=== PATIENT | female | born 1945 | race African-American/Black ===

== ENCOUNTER 2017-10-30 11:43 | Emergency (ER) | payer OTHER ==
[~2017-10-30] VITALS: Ht 162.6 cm; Wt 67.0 kg
[~2017-10-30 11:43] MED LIST: ASPI-1159 PO; BUDE6.9H INH; CHOL100046 PO; DIAZ5TAB4 PO; ESOM40CA PO; HYDR-2510 PO; METO-539 PO; NITR0.4T SL; PREMV; probiotic PO
[2017-10-30 15:03] VITALS: BP 169/70
== END 2017-10-30 15:05 | disposition home or self-care (01) ==
LOC: ER 12:54
DX: M77.8 Other enthesopathies, not elsewhere classified (principal); I10 Essential (primary) hypertension; Z85.3 Personal history of malignant neoplasm of breast; E78.00 Pure hypercholesterolemia, unspecified; I11.9 Hypertensive heart disease without heart failure; Z87.891 Personal history of nicotine dependence; Z79.82 Long term (current) use of aspirin; Z88.8 Allergy status to other drugs, medicaments and biological substances; Z98.890 Other specified postprocedural states
CPT/HCPCS: 99283

== ENCOUNTER 2017-12-26 06:45 | Inpatient (IN) | payer OTHER ==
[~2017-12-26] VITALS: Ht 162.6 cm; Wt 72.6 kg
[2017-12-26] MEDS ORDERED: IODIXANOL 320MG/ML 100 ML BOTTLE IV ONE ×2 (07:27→09:53)
[2017-12-26] MEDS ORDERED: LIDOCAINE HCL 1% 20ML VIAL (Pyxis) INJ ONE (07:28)
[2017-12-26] MEDS ORDERED: TRIA1TAB92 PO (08:08)
[2017-12-26] MEDS ORDERED: HYDR-4133 PO (08:08)
[2017-12-26] MEDS ORDERED: FENTANYL CITRATE/PF 50MCG/ML 2ML VIAL ONE (08:48)
[2017-12-26] MEDS ORDERED: MIDAZOLAM HCL 2 MG/2 ML VIAL ONE ×2 (08:48→09:52)
[2017-12-26] MEDS ORDERED: IOHEXOL-300 100 ML BOTTLE ONE (09:25)
[2017-12-26] MEDS ORDERED: ONDANSETRON HCL 4MG/2ML VIAL ONE ×2 (09:54→14:07)
[2017-12-26] MEDS ORDERED: HYDRALAZINE 20MG/ML VIAL ONE (09:58)
[2017-12-26] MEDS ORDERED: ASPIRIN 325MG TABLET ONE (10:06)
[2017-12-26] MEDS ORDERED: CLOPIDOGREL 75MG TABLET ONE (10:07)
[2017-12-26] MEDS: ACETAMINOPHEN 325MG TABLET PO PRN ×2 (11:58→23:21)
[2017-12-26] MEDS ORDERED: NICARDIPINE 100MCG/ML 10ML VIAL (CATH LAB) IV ONE (14:48)
[2017-12-26] MEDS ORDERED: NITROGLYCERIN 50MCG/ML 10ML VIAL (CATH LAB) IV ONE (14:48)
[2017-12-26] MEDS ORDERED: HEPARIN SODIUM 1,000 UNIT/1ML VIAL IV ONE (14:50)
[2017-12-26 15:45] VITALS: BP 138/92
[2017-12-26 15:50] VITALS: BP 138/92
[2017-12-26 16:00] VITALS: BP 145/71
[2017-12-26] MEDS ORDERED: ONDANSETRON HCL 4MG/2ML VIAL IV NR (16:54)
[2017-12-26] MEDS ORDERED: ONDANSETRON HCL 4MG/2ML VIAL IV PRN (16:55)
[2017-12-26] MEDS ORDERED: ATROPINE SULFATE 1MG/10ML SYR IV PRN (17:00)
[2017-12-26] MEDS ORDERED: NITROGLYCERIN 0.4MG TABLET SL SL PRN (17:30)
[2017-12-26] MEDS ORDERED: MEDICATION NOT ON FORMULARY EA (Budesonide/Formoterol Fumarate (Symbicort 80/4.5 Mcg Inh INH SCH (17:30)
[2017-12-26] MEDS: HYDRALAZINE HCL 50MG TABLET PO SCH (17:39)
[2017-12-26] MEDS ORDERED: BUDESONIDE 0.5MG/2ML NEB HHN SCH (18:00)
[2017-12-26] MEDS ORDERED: ALBUTEROL (0.083%) 2.5MG/3ML NEB HHN SCH (18:00)
[2017-12-26 18:01] VITALS: BP 140/68
[2017-12-26 20:00] VITALS: BP 146/87
[2017-12-26] MEDS ORDERED: DIAZEPAM 5 MG TABLET PO PRN (21:00)
[2017-12-26] MEDS: METOPROLOL TARTRATE 25MG TABLET PO SCH (21:28)
[2017-12-26 22:00] VITALS: BP 159/73
[2017-12-27] VITALS (9 sets, daily range): BP systolic 105–149; BP diastolic 48–79
[2017-12-27] MEDS ORDERED: PANTOPRAZOLE 40MG DR TABLET PO SCH (06:50)
[2017-12-27 07:15] LABS: CHLORIDE 95 mEq/L (98-107)
[2017-12-27 07:27] LABS: BASOPHILS % 0.9 % (0.0-2.0); EOSINOPHILS % 1.5 % (0.0-5.0); HEMATOCRIT. 33.1 % (36.0-48.0); HEMOGLOBIN. 11.5 g/dL (12.0-16.0); LYMPHOCYTES % 23.5 % (20.0-50.0); MEAN CORPUSCULAR HEMOGLOBIN 28.9 pg (28.0-32.0); MEAN CORPUSCULAR VOLUME 83.1 fL (81.0-99.0); MEAN PLATELET VOLUME 8.3 fl (7.4-10.4); MONOCYTES % 11.3 % (2.0-8.0); NEUTROPHILS % 62.8 % (40.0-76.0); PLATELET 269 x1000/uL (130-400); RED BLOOD CELL COUNT 3.98 mill/uL (4.2-5.4); RED CELL DISTRIBUTION WIDTH 14.4 % (11.6-14.6)
[2017-12-27] MEDS: METOPROLOL TARTRATE 25MG TABLET PO SCH (08:19)
[2017-12-27] MEDS: HYDRALAZINE HCL 50MG TABLET PO SCH (08:20)
[2017-12-27] MEDS ORDERED: ASPIRIN 81MG EC TABLET PO SCH (09:00)
[2017-12-27] MEDS ORDERED: CLOPIDOGREL 75MG TABLET PO SCH (09:00)
[2017-12-27] MEDS ORDERED: MEDICATION NOT ON FORMULARY EA (Esomeprazole Mag Trihydrate (Nexium) 1 CAP) PO SCH (09:00)
[2017-12-27] MEDS ORDERED: TRIAMTERENE/HYDROCHLOROTHIAZID 75/50MG TABLET PO SCH (09:00)
[2017-12-27] MEDS ORDERED: HYDROCHLOROTHIAZIDE 50MG TABLET PO SCH (09:00)
[2017-12-27] MEDS ORDERED: CHOLECALCIFEROL 5000 UNIT PO SCH (09:00)
[2017-12-27] MEDS ORDERED: PROBIOTIC PO SCH (09:00)
[2017-12-27] MEDS ORDERED: CHOLECALCIFEROL (D3) 1000 UNIT TABLET PO SCH (09:00)
[2017-12-27] MEDS ORDERED: LACTOBACILLUS GG CAPSULE PO SCH (09:00)
[2017-12-27] MEDS ORDERED: ASPIRIN 325MG TABLET PO SCH (09:00)
== END 2017-12-27 14:30 | disposition home or self-care (01) | DRG 247 ==
LOC: CCL 06:45 → 3WST 06:46
PROVIDERS: ADMIT Internal Medicine; ATTEND Specialist
PROC: 027034Z Dilation of Coronary Artery, One Artery with Drug-eluting Intraluminal Device, Percutaneous Approach (ICD-10-PCS; 2017-12-26)
PROC: B2111ZZ Fluoroscopy of Multiple Coronary Arteries using Low Osmolar Contrast (ICD-10-PCS; 2017-12-26)
PROC: B2151ZZ Fluoroscopy of Left Heart using Low Osmolar Contrast (ICD-10-PCS; 2017-12-26)
PROC: 4A023N7 Measurement of Cardiac Sampling and Pressure, Left Heart, Percutaneous Approach (ICD-10-PCS; principal; 2017-12-26 10:00)
DX: T82.855A Stenosis of coronary artery stent, initial encounter (principal); I25.110 Atherosclerotic heart disease of native coronary artery with unstable angina pectoris; I11.9 Hypertensive heart disease without heart failure; Y83.8 Other surgical procedures as the cause of abnormal reaction of the patient, or of later complication, without mention of misadventure at the time of the procedure; I73.9 Peripheral vascular disease, unspecified; Y92.89 Other specified places as the place of occurrence of the external cause
CPT/HCPCS: 36415; 80048; 83735; 84443; 85025; 85347; 92928; 93005; 93458; C1725; C1769; C1887; C1893; J0360; J1644; J2250; J2405; J3010; J3490; J7040; Q9967

== ENCOUNTER 2018-09-03 06:10 | Inpatient (IN) | payer OTHER ==
[~2018-09-03] VITALS: Ht 162.6 cm; Wt 65.0 kg
[2018-09-03] VITALS (22 sets, daily range): BP systolic 132–173; BP diastolic 34–67
[~2018-09-03 06:10] MED LIST changes: +HYDR-4133 PO; +TRIA1TAB92 PO
[2018-09-03] MEDS ORDERED: GELATIN SPONGE,ABSORBABLE 12-7MM SPONGE ONE (07:00)
[2018-09-03] MEDS ORDERED: LACTATED RINGERS 1,000 ML IV SCH (07:00)
[2018-09-03] MEDS ORDERED: HEPARIN SODIUM 1,000 UNIT/1ML VIAL IV ONE (07:01)
[2018-09-03] MEDS ORDERED: LIDOCAINE HCL 1% 20ML VIAL (Pyxis) INJ ONE (07:01)
[2018-09-03] MEDS ORDERED: BACITRACIN 15GM TUBE TOP ONE (07:01)
[2018-09-03] MEDS ORDERED: THROMBIN (BOVINE) 5000 UNITS/VIAL TOP ONE (07:01)
[2018-09-03] MEDS ORDERED: NORMAL SALINE 0.9% 10 ML SYR ONE (07:02)
[2018-09-03] MEDS ORDERED: BACITRACIN 50,000 UNITS/VIAL ONE (07:02)
[2018-09-03] MEDS ORDERED: BUPIVACAINE HCL/PF 0.5% (5MG/ML) 10ML ONE (07:02)
[2018-09-03] MEDS ORDERED: MIDAZOLAM HCL 2 MG/2 ML VIAL ONE (07:44)
[2018-09-03] MEDS ORDERED: PROPOFOL 200MG/20ML VIAL IV ONE (07:44)
[2018-09-03] MEDS ORDERED: PHENYLEPHRINE HCL 10 MG/ML 1ML (IV VIAL) IV ONE (08:15)
[2018-09-03] MEDS ORDERED: PHENYLEPHRINE 10 MG in DEXT 5% WATER 249 ML IV ONE ×2 (08:17→08:30)
[2018-09-03] MEDS ORDERED: NICARDIPINE 50 MG in SODIUM CHLORIDE 0.9% 230 ML IV ONE (08:18)
[2018-09-03] MEDS ORDERED: MORPHINE SULFATE 4 MG/ML CPJ (NOT FOR IM USE) IV PRN (08:30)
[2018-09-03] MEDS ORDERED: ROCURONIUM BROMIDE 10MG/ML VIAL 5ML IV ONE (08:33)
[2018-09-03] MEDS ORDERED: AMLO10TA80 PO (09:10)
[2018-09-03] MEDS ORDERED: TURM1CAP PO (09:10)
[2018-09-03] MEDS ORDERED: CLOP75TA16 PO (09:10)
[2018-09-03] MEDS ORDERED: GLYCOPYRROLATE 0.2 MG/ML 2ML VIAL ONE (09:42)
[2018-09-03] MEDS ORDERED: AMLODIPINE 5MG TABLET PO NR (12:45)
[2018-09-03] MEDS ORDERED: ATROPINE SULFATE 1MG/ML VIAL IV PRN (13:00)
[2018-09-03] MEDS ORDERED: METO-385 PO (15:54)
[2018-09-03] MEDS ORDERED: EVOL140P SQ (15:54)
[2018-09-03] MEDS ORDERED: TRIA1TAB92 MT (15:54)
[2018-09-03] MEDS ORDERED: DIPHENHYDRAMINE 50MG/ML VIAL IV PRN (18:15)
[2018-09-03] MEDS ORDERED: ACETAMINOPHEN 325MG TABLET PO PRN (18:15)
[2018-09-03] MEDS ORDERED: IPRATROPIUM/ALBUTEROL 0.5-3(2.5)MG/3ML NEB HHN PRN (18:15)
[2018-09-03] MEDS ORDERED: DOCUSATE SODIUM 100MG CAPSULE PO PRN (18:15)
[2018-09-03] MEDS ORDERED: ACETAMINOPHEN 650MG SUPP PR PRN (18:15)
[2018-09-03] MEDS: NICARDIPINE 50 MG in SODIUM CHLORIDE 0.9% 230 ML IV PRN ×2 (18:57→23:40)
[2018-09-03 22:04] LABS: HEMATOCRIT 33.1 % (36.0-48.0); MEAN CORPUSCULAR HEMOGLOBIN 28.2 pg (28.0-32.0); MEAN CORPUSCULAR VOLUME 84.7 fL (81.0-99.0); PLATELET 256 x1000/uL (130-400); RED BLOOD CELL COUNT 3.91 mill/uL (4.2-5.4); RED CELL DISTRIBUTION WIDTH 14.7 % (11.6-14.6)
[2018-09-03 22:09] LABS: PROTHROMBIN TIME 10.1 sec (9.1-11.1)
[2018-09-03 22:16] LABS: CHLORIDE 100 mEq/L (98-107)
[2018-09-03 22:23] LABS: LDL CHOLESTEROL 144 mg/dL (5-100)
[2018-09-03 22:24] LABS: HDL CHOLESTEROL 53 mg/dL (40-59)
[2018-09-04] VITALS (56 sets, daily range): BP systolic 55–164; BP diastolic -25–76
[2018-09-04] MEDS: ATORVASTATIN CALCIUM 20MG TABLET PO SCH ×2 (00:29→00:49)
[2018-09-04] MEDS: NICARDIPINE 50 MG in SODIUM CHLORIDE 0.9% 230 ML IV PRN (03:47)
[2018-09-04 06:02] LABS: BASOPHILS % 0.8 % (0.0-2.0); EOSINOPHILS % 0.5 % (0.0-5.0); HEMATOCRIT. 32.1 % (36.0-48.0); HEMOGLOBIN. 10.8 g/dL (12.0-16.0); LYMPHOCYTES % 27.6 % (20.0-50.0); MEAN CORPUSCULAR HEMOGLOBIN 28.5 pg (28.0-32.0); MEAN CORPUSCULAR VOLUME 84.9 fL (81.0-99.0); MEAN PLATELET VOLUME 7.8 fl (7.4-10.4); MONOCYTES % 12.5 % (2.0-8.0); NEUTROPHILS % 58.6 % (40.0-76.0); PLATELET 247 x1000/uL (130-400); RED BLOOD CELL COUNT 3.78 mill/uL (4.2-5.4); RED CELL DISTRIBUTION WIDTH 14.8 % (11.6-14.6)
[2018-09-04 06:36] LABS: CLARITY URINE CLEAR (CLEAR); COLOR URINE YELLOW (YELLOW); KETONES URINE 1+ (NEGATIVE); LEUKOCYTE ESTERASE URINE NEGATIVE (NEGATIVE); NITRITE URINE NEGATIVE (NEGATIVE); OCCULT BLOOD URINE NEGATIVE (NEGATIVE); PROTEIN URINE NEGATIVE (NEGATIVE); SPECIFIC GRAVITY URINE 1.011 (1.005-1.030); UROBILINOGEN URINE 0.2 E.U./dL (0.2-1.0)
[2018-09-04 06:42] LABS: CHLORIDE 99 mEq/L (98-107)
[2018-09-04 06:45] LABS: PHOSPHORUS 3.3 mg/dL (2.5-4.9)
[2018-09-04] MEDS: HYDROCODONE/ACETAMINOPHEN 5/325MG TABLET PO PRN ×2 (09:38→11:10)
[2018-09-04] MEDS: AMLODIPINE 5MG TABLET PO SCH (09:38)
[2018-09-04] MEDS: SODIUM CHLORIDE 0.9% 1,000 ML IV SCH (10:15)
[2018-09-04] MEDS: LISINOPRIL 5MG TABLET PO SCH ×2 (11:18→21:18)
[2018-09-04] MEDS: MAGNESIUM OXIDE 400MG TABLET PO SCH (11:19)
[2018-09-04] MEDS ORDERED: MAGNESIUM 1 G PREMIX 100 ML IV NR (12:00)
[2018-09-04] MEDS: ASPIRIN 81MG TABLET PO SCH (15:55)
[2018-09-04] MEDS: HYDRALAZINE 20MG/ML VIAL IV PRN (18:13)
[2018-09-04] MEDS ORDERED: ATORVASTATIN CALCIUM 20MG TABLET PO SCH (21:00)
[2018-09-05] VITALS (28 sets, daily range): BP systolic 133–166; BP diastolic 48–92
[2018-09-05] MEDS: HYDRALAZINE 20MG/ML VIAL IV PRN (00:45)
[2018-09-05 07:02] LABS: BASOPHILS % 0.7 % (0.0-2.0); EOSINOPHILS % 4.9 % (0.0-5.0); HEMATOCRIT. 32.8 % (36.0-48.0); HEMOGLOBIN. 10.9 g/dL (12.0-16.0); LYMPHOCYTES % 27.4 % (20.0-50.0); MEAN CORPUSCULAR HEMOGLOBIN 28.3 pg (28.0-32.0); MEAN CORPUSCULAR VOLUME 85.5 fL (81.0-99.0); MEAN PLATELET VOLUME 8.1 fl (7.4-10.4); MONOCYTES % 14.2 % (2.0-8.0); NEUTROPHILS % 52.8 % (40.0-76.0); PLATELET 241 x1000/uL (130-400); RED BLOOD CELL COUNT 3.83 mill/uL (4.2-5.4); RED CELL DISTRIBUTION WIDTH 15.5 % (11.6-14.6)
[2018-09-05 07:14] LABS: CHLORIDE 104 mEq/L (98-107)
[2018-09-05] MEDS: AMLODIPINE 5MG TABLET PO SCH (09:43)
[2018-09-05] MEDS: ASPIRIN 81MG TABLET PO SCH (09:43)
[2018-09-05] MEDS: MAGNESIUM OXIDE 400MG TABLET PO SCH (09:43)
[2018-09-05] MEDS: LISINOPRIL 5MG TABLET PO SCH ×2 (09:44→21:46)
[2018-09-05] MEDS: SODIUM CHLORIDE 0.9% 1,000 ML IV SCH (09:45)
[2018-09-05] MEDS ORDERED: HYDRALAZINE HCL 50MG TABLET PO ONE (11:15)
[2018-09-05] MEDS ORDERED: HYDRALAZINE HCL 50MG TABLET PO SCH (11:21)
[2018-09-05] MEDS ORDERED: DOCUSATE SODIUM SUGAR FREE 100MG/10ML UDC NG SCH (11:30)
[2018-09-05] MEDS: CHOLESTYRAMINE/SUCROSE 4G POWDER PACKET PO SCH (17:03)
[2018-09-05] MEDS: CLOPIDOGREL 75MG TABLET PO SCH (17:03)
[2018-09-05] MEDS: HYDRALAZINE HCL 50MG TABLET PO SCH (21:47)
[2018-09-06] VITALS: BP 135/87
[2018-09-06 04:00] VITALS: BP 150/71
[2018-09-06 08:10] VITALS: BP 103/64
[2018-09-06] MEDS: CHOLESTYRAMINE/SUCROSE 4G POWDER PACKET PO SCH (08:54)
[2018-09-06] MEDS: MAGNESIUM OXIDE 400MG TABLET PO SCH (08:54)
[2018-09-06] MEDS: ASPIRIN 81MG TABLET PO SCH (08:54)
[2018-09-06] MEDS: CLOPIDOGREL 75MG TABLET PO SCH (08:54)
[2018-09-06] MEDS: HYDRALAZINE HCL 50MG TABLET PO SCH (08:59)
[2018-09-06] MEDS: AMLODIPINE 5MG TABLET PO SCH (08:59)
[2018-09-06] MEDS: LISINOPRIL 5MG TABLET PO SCH (09:00)
[2018-09-06 12:00] VITALS: BP 134/66
[2018-09-06 16:00] VITALS: BP 112/72
[2018-09-06 17:29] VITALS: BP 112/72
== END 2018-09-06 19:15 | disposition home or self-care (01) | DRG 26 ==
LOC: OR 06:10 → CVICU 06:11 → 6WST 09-05 14:21
PROVIDERS: ADMIT Surgery Vascular Surgery; ATTEND Surgery Vascular Surgery
PROC: 03CH3ZZ Extirpation of Matter from Right Common Carotid Artery, Percutaneous Approach (ICD-10-PCS; principal; 2018-09-03)
PROC: 03CM3ZZ Extirpation of Matter from Right External Carotid Artery, Percutaneous Approach (ICD-10-PCS; 2018-09-03)
DX: I65.21 Occlusion and stenosis of right carotid artery (principal); J44.1 Chronic obstructive pulmonary disease with (acute) exacerbation; E87.1 Hypo-osmolality and hyponatremia; D68.59 Other primary thrombophilia; I11.9 Hypertensive heart disease without heart failure; K21.9 Gastro-esophageal reflux disease without esophagitis; I73.9 Peripheral vascular disease, unspecified; E83.42 Hypomagnesemia; I25.10 Atherosclerotic heart disease of native coronary artery without angina pectoris; E78.5 Hyperlipidemia, unspecified; Z87.81 Personal history of (healed) traumatic fracture; Z79.899 Other long term (current) drug therapy; Z85.3 Personal history of malignant neoplasm of breast; Z88.8 Allergy status to other drugs, medicaments and biological substances; Z90.12 Acquired absence of left breast and nipple; Z95.5 Presence of coronary angioplasty implant and graft
CPT/HCPCS: 36415; 76881; 80048; 80061; 83036; 83735; 84100; 84443; 85027; 88304; 88311; 93005; 93306; 97162; 97530; A6261; J0360; J1644; J2250; J2370; J2704; J3475; J3490; J7030; J7050; J7060; A4315

== ENCOUNTER 2018-09-07 01:50 | Emergency (ER) | payer OTHER ==
[~2018-09-07] VITALS: Ht 167.6 cm; Wt 70.0 kg
[~2018-09-07 01:50] MED LIST changes: +AMLO10TA80 PO; +EVOL140P SQ; -HYDR-2510 PO; +METO-385 PO; -METO-539 PO; -PREMV; +TRIA1TAB92 MT; -TRIA1TAB92 PO; +TURM1CAP PO
[2018-09-07 06:13] VITALS: BP 149/68
== END 2018-09-07 06:16 | disposition home or self-care (01) ==
LOC: ER 01:50
DX: I97.618 Postprocedural hemorrhage of a circulatory system organ or structure following other circulatory system procedure (principal); I10 Essential (primary) hypertension; E66.9 Obesity, unspecified; Z88.8 Allergy status to other drugs, medicaments and biological substances; Z91.041 Radiographic dye allergy status; Z79.82 Long term (current) use of aspirin; Z85.9 Personal history of malignant neoplasm, unspecified; Z68.24 Body mass index [BMI] 24.0-24.9, adult; Y83.8 Other surgical procedures as the cause of abnormal reaction of the patient, or of later complication, without mention of misadventure at the time of the procedure; Y92.018 Other place in single-family (private) house as the place of occurrence of the external cause
CPT/HCPCS: 99282; 99283

== ENCOUNTER → 2020-04-06 | Outpatient (CLI) | payer OTHER ==
[~2020-04-06] MED LIST changes: -ASPI-1159 PO; +ASPI-1497 PO; +BARIUM SULFATE 176 GM SUSP.RECON ONE; -EVOL140P SQ; +EVOL140P3 SQ; +EZ-HD SUSPENSION(BARIUM SULFATE 340GM) PO ONE
== END | disposition home or self-care (01) ==
LOC: RAD 08:51
PROVIDERS: ATTEND Internal Medicine Gastroenterology
DX: K22.4 Dyskinesia of esophagus (principal); K21.9 Gastro-esophageal reflux disease without esophagitis; R13.10 Dysphagia, unspecified; I70.0 Atherosclerosis of aorta
CPT/HCPCS: 74220

== ENCOUNTER 2022-08-10 13:29 | Inpatient (IN) | payer MEDICARE, MEDICAID ==
[~2022-08-10] VITALS: Ht 154.9 cm; Wt 54.2 kg
[~2022-08-10 13:29] MED LIST changes: -BARIUM SULFATE 176 GM SUSP.RECON ONE; -EZ-HD SUSPENSION(BARIUM SULFATE 340GM) PO ONE
[2022-08-10] MEDS ORDERED: NITROGLYCERIN 0.4MG TABLET SL SL PRN (16:30)
[2022-08-10] MEDS ORDERED: ASPIRIN 81MG TABLET PO ONE (16:30)
[2022-08-10 18:03] LABS: BASOPHILS % 1.3 % (0.0-2.0); EOSINOPHILS % 3.8 % (0.0-5.0); HEMATOCRIT. 39.3 % (36.0-48.0); LYMPHOCYTES % 36.9 % (20.0-50.0); MEAN CORPUSCULAR HEMOGLOBIN 28.9 pg (28.0-32.0); MEAN CORPUSCULAR VOLUME 87.1 fL (81.0-99.0); MEAN PLATELET VOLUME 8.2 fl (7.4-10.4); MONOCYTES % 12.3 % (2.0-8.0); NEUTROPHILS % 45.7 % (40.0-76.0); PLATELET 194 x1000/uL (130-400); RED BLOOD CELL COUNT 4.51 mill/uL (4.2-5.4); RED CELL DISTRIBUTION WIDTH 16.4 % (11.6-14.6)
[2022-08-10 18:13] LABS: CHLORIDE 95 mEq/L (98-107)
[2022-08-10] MEDS ORDERED: ASPIRIN 81MG TABLET PO NR (18:30)
[2022-08-10 23:51] LABS: CLARITY URINE CLEAR (CLEAR); COLOR URINE YELLOW (YELLOW); KETONES URINE TRACE (NEGATIVE); LEUKOCYTE ESTERASE URINE NEGATIVE (NEGATIVE); NITRITE URINE NEGATIVE (NEGATIVE); OCCULT BLOOD URINE NEGATIVE (NEGATIVE); PROTEIN URINE NEGATIVE (NEGATIVE); SPECIFIC GRAVITY URINE 1.014 (1.005-1.030); UROBILINOGEN URINE 0.2 E.U./dL (0.2-1.0)
[2022-08-11] VITALS (8 sets, daily range): BP systolic 135–159; BP diastolic 54–81
[2022-08-11] MEDS ORDERED: NITROGLYCERIN 0.4MG TABLET SL SL PRN (01:00)
[2022-08-11] MEDS ORDERED: GUAIFENESIN 200MG/10ML SUGAR FREE UDC PO PRN (01:00)
[2022-08-11] MEDS ORDERED: CEFTRIAXONE 1 G PREMIX 50 ML IV SCH (01:00)
[2022-08-11] MEDS ORDERED: DOCUSATE SODIUM 100MG CAPSULE PO PRN (01:00)
[2022-08-11] MEDS ORDERED: ACETAMINOPHEN 325MG TABLET PO PRN ×2 (01:00)
[2022-08-11] MEDS ORDERED: IPRATROPIUM/ALBUTEROL 0.5-3(2.5)MG/3ML NEB NEB PRN (01:00)
[2022-08-11] MEDS ORDERED: CLONIDINE 0.1MG TABLET PO PRN (01:00)
[2022-08-11] MEDS ORDERED: MAGNESIUM/ALUMINUM HYDROXIDE/SIMETHICONE 30ML UDC PO PRN (01:00)
[2022-08-11] MEDS: FUROSEMIDE 40MG/4ML VIAL IVP SCH ×3 (01:15→17:28)
[2022-08-11] MEDS ORDERED: AZITHROMYCIN 500 MG in DEXT 5% WATER 250 ML IV SCH (02:00)
[2022-08-11] MEDS: METHYLPREDNISOLONE SOD SUCC 40 MG/ML VIAL IV SCH ×2 (02:00→09:31)
[2022-08-11] MEDS: ONDANSETRON HCL 4MG/2ML INJ IV PRN (04:34)
[2022-08-11 07:47] LABS: BG BASE EXCESS 2.1 mmol/L (-2.0-2.0); BG CARBOXYHEMOGLOBIN 0.9 % (0.5-1.5); BG DEOXYHEMOGLOBIN 5.1 % (0.0-5.0); BG HCO3 ACT 26.3 mmol/L (22.0-26.0); BG METHEMOGLOBIN 0.6 % (0.0-1.5); BG OXYGEN SATURATION 94.8 % (92.0-98.5); BG OXYHEMOGLOBIN 93.4 % (94.0-97.0); BG PCO2 39.8 mmHg (35.0-45.0); BG PH 7.438 (7.350-7.450); BG PO2 77.3 mmHg (75.0-100.0); BG SAMPLE SITE RIGHT BRACHIAL; BG TOTAL HEMOGLOBIN 13.6 g/dL (12.0-18.0); BG VENT MODE ROOM AIR
[2022-08-11] MEDS: HYDRALAZINE HCL 50MG TABLET PO SCH ×3 (09:00→17:00)
[2022-08-11] MEDS ORDERED: ALBUTEROL (0.083%) 2.5MG/3ML NEB HHN PRN (09:00)
[2022-08-11] MEDS ORDERED: IPRATROPIUM BROMIDE (0.02%) 0.5MG/2.5ML NEB HHN PRN (09:00)
[2022-08-11] MEDS ORDERED: DIAZEPAM 5 MG TABLET PO PRN (09:00)
[2022-08-11] MEDS: ASPIRIN 81MG EC TABLET PO SCH (09:19)
[2022-08-11] MEDS: METOPROLOL SUCCINATE 50MG ER TABLET PO SCH (09:20)
[2022-08-11] MEDS: TRIAMTERENE/HCTZ 37.5/25MG TABLET PO SCH (09:20)
[2022-08-11] MEDS: AMLODIPINE 10MG TABLET PO SCH (09:21)
[2022-08-11] MEDS: ENOXAPARIN 40MG/0.4ML SYR SUBCUT SCH (09:22)
[2022-08-11] MEDS ORDERED: ZOLPIDEM TARTRATE 5MG TABLET PO PRN (14:15)
[2022-08-11] MEDS: NITROGLYCERIN OINT 1GM/INCH UDPKT TD SCH ×2 (15:08→21:24)
[2022-08-11 15:58] LABS: BASOPHILS % 0.4 % (0.0-2.0); HEMATOCRIT. 44.7 % (36.0-48.0); HEMOGLOBIN. 14.8 g/dL (12.0-16.0); LYMPHOCYTES % 22.2 % (20.0-50.0); MEAN CORPUSCULAR HEMOGLOBIN 29.1 pg (28.0-32.0); MEAN CORPUSCULAR VOLUME 87.8 fL (81.0-99.0); MEAN PLATELET VOLUME 8.7 fl (7.4-10.4); MONOCYTES % 1.4 % (2.0-8.0); PLATELET 210 x1000/uL (130-400); RED BLOOD CELL COUNT 5.09 mill/uL (4.2-5.4); RED CELL DISTRIBUTION WIDTH 16.6 % (11.6-14.6)
[2022-08-11 16:14] LABS: CHLORIDE 92 mEq/L (98-107)
[2022-08-11 16:28] LABS: HDL CHOLESTEROL 52 mg/dL (40-59); LDL CHOLESTEROL 186 mg/dL (5-100); PHOSPHORUS 3.9 mg/dL (2.5-4.9); T4 FREE 1.31 ng/dL (0.76-1.46)
[2022-08-11] MEDS ORDERED: SODIUM CHLORIDE 0.9% 100 ML IV ONE (20:15)
[2022-08-11] MEDS: FAMOTIDINE 20MG TABLET PO SCH (20:46)
[2022-08-11] MEDS ORDERED: ATORVASTATIN CALCIUM 40MG TABLET PO SCH (21:00)
[2022-08-11] MEDS ORDERED: CEFTRIAXONE 1,000 MG in DEXTROSE 5% WATER 50 ML IV SCH (22:00)
[2022-08-12] VITALS (7 sets, daily range): BP systolic 118–159; BP diastolic 53–73
[2022-08-12 04:44] LABS: PHOSPHORUS 4.9 mg/dL (2.5-4.9)
[2022-08-12] MEDS: NITROGLYCERIN OINT 1GM/INCH UDPKT TD SCH ×3 (06:07→21:06)
[2022-08-12 06:18] LABS: BASOPHILS % 0.3 % (0.0-2.0); HEMATOCRIT. 41.1 % (36.0-48.0); LYMPHOCYTES % 14.8 % (20.0-50.0); MEAN CORPUSCULAR HEMOGLOBIN 29.5 pg (28.0-32.0); MEAN CORPUSCULAR VOLUME 86.6 fL (81.0-99.0); MONOCYTES % 8.5 % (2.0-8.0); NEUTROPHILS % 76.4 % (40.0-76.0); PLATELET 239 x1000/uL (130-400); RED BLOOD CELL COUNT 4.75 mill/uL (4.2-5.4); RED CELL DISTRIBUTION WIDTH 16.5 % (11.6-14.6)
[2022-08-12] MEDS: ENOXAPARIN 40MG/0.4ML SYR SUBCUT SCH (08:26)
[2022-08-12] MEDS: FUROSEMIDE 40MG/4ML VIAL IVP SCH ×2 (08:26→17:24)
[2022-08-12] MEDS: ASPIRIN 81MG EC TABLET PO SCH (08:27)
[2022-08-12] MEDS: AMLODIPINE 10MG TABLET PO SCH (08:27)
[2022-08-12] MEDS: TRIAMTERENE/HCTZ 37.5/25MG TABLET PO SCH (08:27)
[2022-08-12] MEDS: METOPROLOL SUCCINATE 50MG ER TABLET PO SCH (08:28)
[2022-08-12] MEDS: HYDRALAZINE HCL 50MG TABLET PO SCH ×3 (09:00→17:28)
[2022-08-12] MEDS: FAMOTIDINE 20MG TABLET PO SCH (21:05)
[2022-08-13] VITALS: BP 138/59
[2022-08-13] MEDS: ONDANSETRON HCL 4MG/2ML INJ IV PRN (00:44)
[2022-08-13 04:00] VITALS: BP 159/71
[2022-08-13 05:10] LABS: VITAMIN B12 SERUM 1459 pg/mL (211-911)
[2022-08-13 05:16] LABS: FOLIC ACID (FOLATE) SERUM > 20.00 ng/mL (>5.38)
[2022-08-13] MEDS: NITROGLYCERIN OINT 1GM/INCH UDPKT TD SCH (06:25)
[2022-08-13 06:32] LABS: BASOPHILS % 0.5 % (0.0-2.0); EOSINOPHILS % 1.4 % (0.0-5.0); HEMATOCRIT. 36.5 % (36.0-48.0); HEMOGLOBIN. 12.5 g/dL (12.0-16.0); LYMPHOCYTES % 23.2 % (20.0-50.0); MEAN CORPUSCULAR HEMOGLOBIN 29.3 pg (28.0-32.0); MEAN CORPUSCULAR VOLUME 85.3 fL (81.0-99.0); MEAN PLATELET VOLUME 8.7 fl (7.4-10.4); MONOCYTES % 10.9 % (2.0-8.0); PLATELET 236 x1000/uL (130-400); RED BLOOD CELL COUNT 4.28 mill/uL (4.2-5.4); RED CELL DISTRIBUTION WIDTH 16.3 % (11.6-14.6)
[2022-08-13 08:00] VITALS: BP 149/61
[2022-08-13] MEDS ORDERED: POTASSIUM CHLORIDE 20MEQ TABLET SR PO NR (08:15)
[2022-08-13] MEDS: TRIAMTERENE/HCTZ 37.5/25MG TABLET PO SCH (08:18)
[2022-08-13] MEDS: ASPIRIN 81MG EC TABLET PO SCH (08:18)
[2022-08-13] MEDS: HYDRALAZINE HCL 50MG TABLET PO SCH (08:18)
[2022-08-13] MEDS: FUROSEMIDE 40MG/4ML VIAL IVP SCH (08:19)
[2022-08-13] MEDS: METOPROLOL SUCCINATE 50MG ER TABLET PO SCH (08:19)
[2022-08-13] MEDS: AMLODIPINE 10MG TABLET PO SCH (08:19)
[2022-08-13] MEDS ORDERED: ENOXAPARIN 30MG/0.3ML SYR SUBCUT SCH (09:00)
[2022-08-13 12:00] VITALS: BP 143/62
[2022-08-13 12:10] VITALS: BP 159/71
[2022-08-14] MEDS ORDERED: ENOXAPARIN 40MG/0.4ML SYR SUBCUT SCH (09:00)
== END 2022-08-13 15:18 | disposition home or self-care (01) | DRG 291 ==
LOC: ER 13:29 → MICUSO 19:00 → EDBEDREQTM 19:01 → EDBEDREQ 19:01 → 3WST 08-11 08:49
PROVIDERS: ADMIT Internal Medicine; ATTEND Internal Medicine
DX: I11.0 Hypertensive heart disease with heart failure (principal); I50.43 Acute on chronic combined systolic (congestive) and diastolic (congestive) heart failure; J96.01 Acute respiratory failure with hypoxia; E87.1 Hypo-osmolality and hyponatremia; J44.1 Chronic obstructive pulmonary disease with (acute) exacerbation; E87.20 Acidosis, unspecified; I31.39 Other pericardial effusion (noninflammatory); Z20.822 Contact with and (suspected) exposure to COVID-19; Z66 Do not resuscitate; E78.5 Hyperlipidemia, unspecified; R74.01 Elevation of levels of liver transaminase levels; I25.10 Atherosclerotic heart disease of native coronary artery without angina pectoris; K44.9 Diaphragmatic hernia without obstruction or gangrene; F03.90 Unspecified dementia, unspecified severity, without behavioral disturbance, psychotic disturbance, mood disturbance, and anxiety; F51.04 Psychophysiologic insomnia; Z87.891 Personal history of nicotine dependence; Z79.899 Other long term (current) drug therapy; Z88.8 Allergy status to other drugs, medicaments and biological substances; Z79.51 Long term (current) use of inhaled steroids; Z79.82 Long term (current) use of aspirin; Z85.3 Personal history of malignant neoplasm of breast; Z90.12 Acquired absence of left breast and nipple; Z95.5 Presence of coronary angioplasty implant and graft
CPT/HCPCS: 36415; 36600; 71045; 71250; 80048; 80053; 80061; 81003; 82375; 82607; 82746; 82805; 83036; 83605; 83735; 83880; 84100; 84145; 84439; 84443; 84481; 84484; 85025; 85379; 86592; 87426; 87804; 93005; 93306; 93970; 97162; 97166; 99285; C9803; J0456; J0696; J1650; J1940; J2405; J2920; J7060